=== PATIENT | female | born 1990 | race Caucasian/White ===

== ENCOUNTER 2016-09-17 22:25 | Emergency (ER) | payer OTHER ==
[~2016-09-17] VITALS: Ht 167.6 cm; Wt 67.1 kg
[2016-09-17 23:06] LABS: BASO # 0.1 x10^3/uL (0.0-0.2); BASO % 1 % (0-3); EOS % 2 % (0-3); HEMATOCRIT 36.9 % (36.0-47.0); HEMOGLOBIN 12.3 g/dL (12.0-15.5); LYMPH # 1.9 x10^3/uL (1.0-4.8); LYMPH % 27 % (24-48); MEAN CORPUSCULAR HEMOGLOBIN 30 pg (25-35); MEAN CORPUSCULAR HGB CONC 33 g/dL (31-37); MEAN CORPUSCULAR VOLUME 89 fL (79-100); MONO % 8 % (0-9); NEUT % 62 % (31-73); PLATELET COUNT 205 x10^3/uL (140-400); RED BLOOD COUNT 4.15 x10^6/uL (3.50-5.40); RED CELL DISTRIBUTION WIDTH 12.8 % (11.5-14.5); WHITE BLOOD COUNT 7.1 x10^3/uL (4.0-11.0)
[2016-09-17 23:20] LABS: CALCIUM 9.7 mg/dL (8.5-10.1); CREATININE 0.7 mg/dL (0.6-1.0); GFR 102.8; POTASSIUM 4.1 mmol/L (3.5-5.1)
[2016-09-17 23:21] LABS: NEG OBC SER NEG; POS OBC SER POS
[2016-09-17 23:25] LABS: ALBUMIN 4.2 g/dL (3.4-5.0); ALBUMIN/GLOBULIN RATIO 1.1 (1.0-1.7); TOTAL BILIRUBIN 0.4 mg/dL (0.2-1.0); TOTAL PROTEIN 7.9 g/dL (6.4-8.2)
[2016-09-17] MEDS ORDERED: ONDANSETRON PF 4 MG/2 ML VIAL. IV ONE (23:30)
[2016-09-17] MEDS ORDERED: IV NORMAL SALINE 1000ML BAG 1,000 ML IV SCH (23:30)
[2016-09-17] MEDS ORDERED: KETOROLAC TROMETHAMINE 30 MG/ML SYRINGE. IV ONE (23:30)
--- NOTE | 2016-09-18 00:12 | RAD ---
INDICATION: Abdomen pain. COMPARISON: None TECHNIQUE: Axial CT images obtained through the abdomen and pelvis. Intravenous contrast was not utilized. One or more of the following individualized dose reduction techniques were utilized for this examination: 1. Automated exposure control; 2. Adjustment of the mA and/or kV according to patient size; 3. Use of iterative reconstruction technique. FINDINGS: Abdominal aorta not aneurysmal. No intrahepatic bile duct dilation. No peripancreatic edema. Spleen unremarkable. No hydronephrosis. No definite evidence of small bowel obstruction. Bladder unremarkable within limits of CT. Appendix does not appear grossly dilated IMPRESSION: No hydronephrosis. Appendix does not appear grossly dilated. Fullness of the left adnexa which appears low-attenuation. Underlying dominant follicle or small ovarian cyst is possible given this finding. Electronically signed by: Zachary Arnold (Sep 18, 2016 00:11:07)
[2016-09-18 00:15] LABS: BACTERIA,URINE 0 /HPF (0-FEW); BILIRUBIN,URINE NEGATIVE (NEG); GLUCOSE,URINE NEGATIVE (NEG); NITRITE,URINE NEGATIVE (NEG); PROTEIN,URINE NEGATIVE (NEG-TRACE); RBC,URINE TNTC /HPF (0-2); SQUAMOUS EPITHELIAL CELL,UR OCC /LPF; UROBILINOGEN,URINE 0.2 mg/dL (0.2 mg/dL)
[2016-09-18] MEDS ORDERED: IBUP-1007 PO (00:36)
--- NOTE | 2016-09-18 00:37 | PHYS DOC ---
Past Medical History Past Medical History: No Pertinent History Past Surgical History: No Surgical History Alcohol Use: None Drug Use: None Adult General Chief Complaint Chief Complaint: ABDOMINAL PAIN HPI HPI Patient is a 26 year old female who presents today complaining of abdominal pain since 9 PM. Patient reports she's had nausea vomiting assert approximate 7 PM. Patient has any fevers shaking chills or diarrhea. Patient has a dysuria frequency or urgency. Patient denies any vaginal discharge. Patient reports she is currently on her menses. Patient reports she been incarcerated since November. Patient denies any history of hypertension diabetes liver kidney or lung problems. Patient has no surgeries. Patient not smoke or drink. Patient reports Bactrim gives her rash. Patient reports normal by mouth intake. Patient denies any pain with ambulation. Patient's physical exam was unremarkable except for tenderness to palpation to her right lower quadrant near McBurney's point. Patient has no rebound or guarding. Patient has no psoas or manipulator operator signs. Patient's pelvic exam was unremarkable. Patient had no cervical motion tenderness patient has no adnexal masses. Patient is tender to palpation to her right adnexal region. Patient's left adnexa was nontender. Patient had a CT scan of the abdomen and pelvis which was unremarkable and the ED. Patient's CT scan revealed no hydronephrosis, appendix was normal. Patient have a fullness of her left adnexa. Patient was given Toradol and the ED as well as Zofran and feels improved. Patient be discharged home in stable condition on ibuprofen and to follow-up with the Gen[facility] clinic in the morning for reevaluation. Review of Systems Review of Systems Constitutional: Denies fever or chills [] Eyes: Denies change in visual acuity, redness, or eye pain [] HENT: Denies nasal congestion or sore throat [] RAll other review systems are negative except as documented in the history of present illness portion. Current Medications Current Medications Current Medications Medications (Trade) Dose Ordered Sig/Mariza Start Time Stop Time Status Last Admin Dose Admin Ketorolac Tromethamine (Toradol) 30 mg 1X ONCE 09/17/16 23:30 09/17/16 23:31 DC 09/17/16 23:11 30 MG Ondansetron HCl (Zofran) 4 mg 1X ONCE 09/17/16 23:30 09/17/16 23:31 DC 09/17/16 23:11 4 MG Sodium Chloride (Iv Sodium Chloride 0.9% 1000ml Bag) 1,000 ml @ 1,000 mls/hr Q1H 09/17/16 23:30 09/18/16 00:29 09/17/16 23:10 1,000 MLS/HR Allergies Allergies Allergies Coded Allergies Type Severity Reaction Last Updated Verified sulfamethoxazole Allergy Intermediate 09/17/16 Yes trimethoprim Allergy Intermediate 09/17/16 Yes Physical Exam Physical Exam Constitutional: Well developed, well nourished, no acute distress, non-toxic appearance. [] HENT: Normocephalic, atraumatic, bilateral external ears normal, oropharynx moist, no oral exudates, nose normal. [] Eyes: PERRLA, EOMI, conjunctiva normal, no discharge. [] Neck: Normal range of motion, no tenderness, supple, no stridor. [] Cardiovascular:Heart rate regular rhythm, no murmur [] Lungs & Thorax: Bilateral breath sounds clear to auscultation [] Abdomen: Bowel sounds normal, soft, positive tenderness to palpation to her right lower quadrant no masses, no pulsatile masses. [] Skin: Warm, dry, no erythema, no rash. [] Back: No tenderness, no CVA tenderness. [] Extremities: No tenderness, no cyanosis, no clubbing, ROM intact, no edema. [] Neurologic: Alert and oriented X 3, normal motor function, normal sensory function, no focal deficits noted. [] Psychologic: Affect normal, judgement normal, mood normal. [] Pelvic see above Current Patient Data Vital Signs Vital Signs Date Time Temp Pulse Resp B/P Pulse Ox O2 Delivery O2 Flow Rate FiO2 09/17/16 22:30 98.7 105 25 137/76 96 Room Air 98.7 Lab Values Laboratory Tests Test 09/17/16 22:38 09/17/16 23:55 White Blood Count 7.1x10^3/uL (4.0-11.0) Red Blood Count 4.15x10^6/uL (3.50-5.40) Hemoglobin 12.3g/dL (12.0-15.5) Hematocrit 36.9% (36.0-47.0) Mean Corpuscular Volume 89fL (79-100) Mean Corpuscular Hemoglobin 30pg (25-35) Mean Corpuscular Hemoglobin Concent 33g/dL (31-37) Red Cell Distribution Width 12.8% (11.5-14.5) Platelet Count 205x10^3/uL (140-400) Neutrophils (%) (Auto) 62% (31-73) Lymphocytes (%) (Auto) 27% (24-48) Monocytes (%) (Auto) 8% (0-9) Eosinophils (%) (Auto) 2% (0-3) Basophils (%) (Auto) 1% (0-3) Neutrophils # (Auto) 4.4x10^3uL (1.8-7.7) Lymphocytes # (Auto) 1.9x10^3/uL (1.0-4.8) Monocytes # (Auto) 0.6x10^3/uL (0.0-1.1) Eosinophils # (Auto) 0.2x10^3/uL (0.0-0.7) Basophils # (Auto) 0.1x10^3/uL (0.0-0.2) Sodium Level 143mmol/L (136-145) Potassium Level 4.1mmol/L (3.5-5.1) Chloride Level 106mmol/L (98-107) Carbon Dioxide Level 23mmol/L (21-32) Anion Gap 14 (6-14) Blood Urea Nitrogen 16mg/dL (7-20) Creatinine 0.7mg/dL (0.6-1.0) Estimated GFR (Cockcroft-Gault) 102.8 BUN/Creatinine Ratio 23 (6-20) H Glucose Level 91mg/dL (70-99) Calcium Level 9.7mg/dL (8.5-10.1) Total Bilirubin 0.4mg/dL (0.2-1.0) Aspartate Amino Transferase (AST) 15U/L (15-37) Alanine Aminotransferase (ALT) 19U/L (14-59) Alkaline Phosphatase 77U/L (46-116) Total Protein 7.9g/dL (6.4-8.2) Albumin 4.2g/dL (3.4-5.0) Albumin/Globulin Ratio 1.1 (1.0-1.7) Lipase 128U/L (73-393) Serum Test, Qualitative Negative (NEG) Urine Collection Type Unknown Urine Color Yellow Urine Clarity Clear Urine pH 7.0 Urine Specific Faith 1.010 Urine Protein Negativemg/dL (NEG-TRACE) Urine Glucose (UA) Negativemg/dL (NEG) Urine Ketones (Stick) Negativemg/dL (NEG) Urine Blood Large (NEG) Urine Nitrite Negative (NEG) Urine Bilirubin Negative (NEG) Urine Urobilinogen Dipstick 0.2mg/dL (0.2 mg/dL) Urine Leukocyte Esterase Trace (NEG) Urine RBC Tntc/HPF (0-2) Urine WBC 1-4/HPF (0-4) Urine Squamous Epithelial Cells Occ/LPF Urine Bacteria 0/HPF (0-FEW) Urine Mucus Slight/LPF Laboratory Tests 09/17/16 22:38 Laboratory Tests 09/17/16 22:38 EKG EKG [] Radiology/Procedures Radiology/Procedures [] Course & Med Decision Making Course & Med Decision Making Pertinent Labs and Imaging studies reviewed. (See chart for details) [] Dragon Disclaimer Dragon Disclaimer This electronic medical record was generated, in whole or in part, using a voice recognition dictation system. Departure Departure Impression: Primary Impression: Abdominal pain Disposition: HOME, SELF-CARE Condition: IMPROVED Referrals: UNKNOWN PCP NAME (PCP) Patient Instructions: Abdominal Pain (Nonspecific) Scripts Ibuprofen 600 Mg [id number] Mg PO PRN Q6HRS PRN INFLAMMATION #20 TAB Prov:LUC ARRINGTON MD 09/18/16 LUC ARRINGTON MD Sep 18, 2016 00:37
[2016-09-18 01:03] VITALS: BP 107/61
== END 2016-09-18 01:17 | disposition home or self-care (01) ==
LOC: ER 22:25 → EEVIPCON 22:25 → ER 09-18 01:17
DX: R10.31 Right lower quadrant pain (principal); R30.0 Dysuria; R11.2 Nausea with vomiting, unspecified; Z88.2 Allergy status to sulfonamides; Z88.1 Allergy status to other antibiotic agents
CPT/HCPCS: 36415; 74176; 80053; 81001; 81025; 83690; 84703; 85027; 87086; 87491; 87591; 96361; 96374; 96375; 99285; J1885; J2405; J7030

== ENCOUNTER 2017-07-26 07:28 | Day surgery (SDC) | payer OTHER ==
[~2017-07-26 07:28] MED LIST: LIDOCAINE 1% PF 2 ML VIAL. ID; ONDANSETRON PF 4 MG/2 ML VIAL. IV; ceFAZolin SODIUM 3 GM in IV DEXTROSE 5% 100 ML IV; fentaNYL PF VIAL 100 MCG/2 ML VIAL IV
[2017-07-26] MEDS: IV RINGERS,LACTATED 1000ML 1,000 ML IV (08:26)
[2017-07-26 08:38] LABS: NEG OBC UR NEG; POS OBC UR POS
[2017-07-26] MEDS ORDERED: DEXAMETHASONE SOD PHOS 20 MG/5 ML VIAL. (09:28)
[2017-07-26] MEDS ORDERED: LIDOCAINE 2% PF Vial for OR 5 ML VIAL. (09:28)
[2017-07-26] MEDS ORDERED: fentaNYL PF VIAL 100 MCG/2 ML VIAL (09:28)
[2017-07-26] MEDS ORDERED: ONDANSETRON PF 4 MG/2 ML VIAL. (09:28)
[2017-07-26] MEDS ORDERED: MIDAZOLAM HCL/PF 2 MG/2 ML VIAL. (09:28)
[2017-07-26] MEDS ORDERED: PROPOFOL 20 ML IV ×2 (09:28→10:18)
[2017-07-26] MEDS ORDERED: SEVOFLURANE 31 TO 60 MINUTES. IH (10:18)
[2017-07-26] MEDS: fentaNYL PF VIAL 100 MCG/2 ML VIAL IV ×3 (10:54→11:25)
[2017-07-26] MEDS: MORPHINE SULFATE 2 MG/ML DISP.SYRIN. IV ×2 (10:58→11:09)
[2017-07-26] MEDS: HYDROmorphone 2 MG/ML VIAL IV ×3 (11:04→11:24)
[2017-07-26] MEDS: PROCHLORPERAZINE 10 MG/2 ML VIAL. IV (11:09)
[2017-07-26] MEDS: oxyCODONE/APAP 5/325 1 TAB TABLET PO (12:19)
== END 2017-07-26 13:22 | disposition home or self-care (01) ==
LOC: SURG 07:28
DX: N92.0 Excessive and frequent menstruation with regular cycle (principal); N94.6 Dysmenorrhea, unspecified; F41.9 Anxiety disorder, unspecified; Z87.440 Personal history of urinary (tract) infections
CPT/HCPCS: 58563; 81025; J0780; J1100; J1170; J2250; J2270; J2405; J2704; J3010